=== PATIENT | female | born 1935 | race Caucasian/White ===

== ENCOUNTER 2024-03-09 14:52 | Emergency (ER) | payer MEDICARE ==
[~2024-03-09] VITALS: Ht 170.2 cm; Wt 50.8 kg
[2024-03-09 15:30] LABS: BASOPHILS # (AUTO) 0.1 (0.0-0.1); BASOPHILS % 0.7 % (0.0-1.0); EOSINOPHILS # (AUTO) 0.2 (0.0-0.4); EOSINOPHILS % 1.2 % (0.0-6.0); HEMATOCRIT 40.6 % (34.2-44.1); HEMOGLOBIN 12.6 g/dL (12.0-16.0); LYMPHOCYTES # (AUTO) 3.8 (1.0-3.2); LYMPHOCYTES % 31.8 % (18.0-39.1); MEAN CORPUSCULAR HEMOGLOBIN 27.7 pg (28-32); MEAN CORPUSCULAR VOLUME 89.2 fL (81-99); MONOCYTES # (AUTO) 0.9 (0.2-0.8); MONOCYTES % 7.6 % (4.4-11.3); NEUTROPHILS # (AUTO) 7.1 (2.1-6.9); NEUTROPHILS % 58.4 % (38.7-80.0); PLATELET COUNT 361 x10e3/uL (140-360); RED BLOOD COUNT 4.55 x10e6/uL (3.6-5.1); RED CELL DISTRIBUTION WIDTH 16.5 % (11.7-14.4); WHITE BLOOD COUNT 12.09 x10e3/uL (4.8-10.8)
[2024-03-09 15:46] LABS: ALBUMIN 3.6 g/dL (3.5-5.0); ANION GAP 15.6 mmol/L (8-16); BILIRUBIN,TOTAL 0.3 mg/dL (0.2-1.2); CALCIUM 9.2 mg/dL (8.4-10.2); CREATININE, SERUM 1.39 mg/dL (0.57-1.11); POTASSIUM 3.6 mmol/L (3.5-5.1); TOTAL PROTEIN 7.2 g/dL (6.5-8.1)
[2024-03-09 15:52] LABS: TROPONIN I 0.015 ng/mL (0-0.300)
[2024-03-09 16:25] VITALS: BP 156/83; PULSE 103
[2024-03-09] MEDS: METOPROLOL TARTRATE INJ 1 MG/ML VIAL IV ONE (16:25)
[2024-03-09] MEDS ORDERED: METOPROLOL TART25 MG PO (16:36)
[2024-03-09 16:48] VITALS: PULSE 95; RESP 18; TEMP 97.8; O2SAT 100
== END 2024-03-09 16:59 | disposition home or self-care (01) ==
LOC: ER 15:00
DX: I48.20 Chronic atrial fibrillation, unspecified (principal); I10 Essential (primary) hypertension; R94.31 Abnormal electrocardiogram [ECG] [EKG]; Z87.19 Personal history of other diseases of the digestive system
CPT/HCPCS: 36415; 71045; 80053; 84484; 85025; 93005; 99284